=== PATIENT | male | born 1960 | race Caucasian/White ===

== ENCOUNTER → 2021-10-31 | Outpatient (CLI) | payer OTHER | LOC: M WHC 07:55 | PROVIDERS: ATTEND Family Medicine | DX: K76.0 Fatty (change of) liver, not elsewhere classified (principal) ==

== ENCOUNTER → 2022-08-14 | Outpatient (REF) | payer OTHER | LOC: M SFHCPLAZ 12:55 | PROVIDERS: ATTEND Family Medicine | DX: D50.9 Iron deficiency anemia, unspecified (principal); K76.0 Fatty (change of) liver, not elsewhere classified; E11.9 Type 2 diabetes mellitus without complications; Z12.5 Encounter for screening for malignant neoplasm of prostate; Z53.9 Procedure and treatment not carried out, unspecified reason ==

== ENCOUNTER → 2023-02-12 | Outpatient (REF) | payer OTHER | LOC: M SFHCPLAZ 13:17 | PROVIDERS: ATTEND Family Medicine | DX: Z53.20 Procedure and treatment not carried out because of patient's decision for unspecified reasons (principal) ==

== ENCOUNTER → 2023-02-14 | Outpatient (CLI) | payer OTHER | LOC: M PLAIMG 13:18 | PROVIDERS: ATTEND Physician Assistant Medical | DX: H90.6 Mixed conductive and sensorineural hearing loss, bilateral (principal) ==

== ENCOUNTER → 2023-04-12 | Outpatient (CLI) | payer OTHER | LOC: M CARPUL 09:22 | PROVIDERS: ATTEND Family Medicine | DX: I77.810 Thoracic aortic ectasia (principal) ==

== ENCOUNTER → 2023-07-09 | Outpatient (REF) | payer MEDICARE, OTHER | LOC: M SFHCPLAZ 13:05 | PROVIDERS: ATTEND Family Medicine | DX: K74.00 Hepatic fibrosis, unspecified (principal); I10 Essential (primary) hypertension; E11.9 Type 2 diabetes mellitus without complications; D50.9 Iron deficiency anemia, unspecified; J06.9 Acute upper respiratory infection, unspecified ==

== ENCOUNTER → 2023-07-27 | Outpatient (REF) | payer MEDICARE, OTHER | LOC: M SFHCPLAZ 09:36 | PROVIDERS: ATTEND Family Medicine | DX: K74.00 Hepatic fibrosis, unspecified (principal); I10 Essential (primary) hypertension; E11.9 Type 2 diabetes mellitus without complications; D50.9 Iron deficiency anemia, unspecified; J06.9 Acute upper respiratory infection, unspecified ==

== ENCOUNTER → 2023-08-02 | Outpatient (CLI) | payer MEDICARE, OTHER | LOC: M RAD 08:29 | PROVIDERS: ATTEND Family Medicine | DX: K74.00 Hepatic fibrosis, unspecified (principal); K76.0 Fatty (change of) liver, not elsewhere classified; N28.1 Cyst of kidney, acquired ==

== ENCOUNTER → 2024-02-18 | Outpatient (REF) | payer MEDICARE, OTHER | LOC: M SFHCDERM 08:15 | PROVIDERS: ATTEND Physician Assistant | DX: I78.1 Nevus, non-neoplastic (principal) ==